=== PATIENT | male | born 1985 | race Caucasian/White ===

== ENCOUNTER 2016-12-02 10:12 | Emergency (ER) | payer OTHER ==
[~2016-12-02] VITALS: Ht 175.3 cm; Wt 106.4 kg
[~2016-12-02 10:12] MED LIST: AMOXICILLIN500 MG PO; AUGMENTIN875 MG PO; BACTRIM,SEPT1 TABLET PO; CLEOCIN300 MG PO; Cipro PO; DECADRON4 MG PO; DOXYCYCLINE HY100 M3 PO; ENDOCET 5-3251 EACH PO; Folvite PO; HABITROL,NICODE21 MG TD; HYDROCODON-ACE1 EAC7 PO; KLONOPIN1 MG PO; LEVAQUIN500 MG PO; LIDOCAINE HCL20 ML MM; MOTRIN600 MG PO; MOTRIN800 MG PO; NAPROSYN500 MG PO; NAPROXEN500 MG PO; NOHOMEMEDS; PERCOCET 5/31 TABLET PO; PREDNISONE20 MG PO; ROBITUSSIN AC,T10 ML PO; TESSALON PERLE100 MG PO; THIAMINE,VITAM100 MG PO; ULTRAM50 MG PO
[2016-12-02 10:45] LABS: ADD MIUA? YES; BILIRUBIN NEGATIVE; BLOOD MODERATE; GLUCOSE (STRIP) NEGATIVE; KETONES NEGATIVE; LEUKOCYTES NEGATIVE; NITRITE NEGATIVE; PROTEIN (STRIP) NEGATIVE; SPECIFIC GRAVITY 1.011 (1.000-1.030); UROBILINOGEN 0.2 MG/DL (0.2-1.0)
[2016-12-02 10:46] LABS: COLOR PALE STRAW ((YELLOW))
[2016-12-02 10:56] LABS: AMPHETAMINE NEGATIVE (500 ng/mL); BARBITURATES NEGATIVE (200 ng/mL); BENZODIAZEPINES NEGATIVE (150 ng/mL); COCAINE NEGATIVE (150 ng/mL); INTERNAL CONTROLS VALID? YES; METHADONE NEGATIVE (200 ng/mL); METHAMPHETAMINE NEGATIVE (500 ng/mL); OPIATES (MORPHINE) NEGATIVE (100 ng/mL); OXYCODONE NEGATIVE (100 ng/mL); PHENCYCLIDINE NEGATIVE (25 ng/mL); PROPOXYPHENE NEGATIVE (300 ng/mL); THC CANNABINOIDS NEGATIVE (50 ng/mL); TRICYCLIC ANTIDEPRESSANTS NEGATIVE (300 ng/mL)
[2016-12-02 11:02] LABS: BASOPHIL COUNT 0.1 K/uL (0-0.1); EOSINOPHIL COUNT 0.1 K/uL (0-0.3); HEMATOCRIT 39.7 % (38.0-50.0); IMMATURE GRANULOCYTE (%) 0.1 % (0.0-0.7); IMMATURE GRANULOCYTE COUNT 0.1 K/uL; LYMPHOCYTE COUNT 2.9 K/uL (1.0-2.8); MCH 31.1 PG (29.0-34.0); MCV 88.8 FL (86-99); MEAN PLAT.VOLUME 9.4 uM^3 (9.0-12.4); MONOCYTE (%) 6.2 % (3-12); MONOCYTE COUNT 0.5 K/uL (0-0.8); NEUTROPHIL (%) 54.2 % (45-76); NEUTROPHIL COUNT 4.2 K/uL (1.8-6.4); PLATELET COUNT 262 K/uL (156-360); RBC DIS.WIDTH-CV 14.9 % (11.8-14.6); RBC DIS.WIDTH-SD 47.5 % (39-53); RED BLOOD COUNT 4.47 M/uL (4.00-5.50); WHITE BLOOD COUNT 7.7 K/uL (4.1-10.2)
[2016-12-02 11:10] LABS: CHLORIDE 109 mEq/L (99-109); POTASSIUM 3.7 mEq/L (3.7-5.4); SODIUM 147 mEq/L (136-147)
[2016-12-02 11:13] LABS: GLUCOSE 87 mg/dL (70-99)
[2016-12-02 11:14] LABS: ANION GAP 13 MEQ/L (2-14); TOTAL BILIRUBIN 0.5 mg/dL (0.0-1.0)
[2016-12-02 11:15] LABS: SERUM ETHYL ALCOHOL 354 mg/dL
[2016-12-02 11:16] LABS: GFR ESTIMATE (CALCULATED) > 59 mL/min/
[2016-12-02 11:17] LABS: ALKALINE PHOSPHATASE 53 IU/L (3-129)
[2016-12-02 11:18] LABS: UREA NITROGEN (BUN) 10 mg/dL (9-23)
[2016-12-02 11:20] LABS: SALICYLATE < 5.0 MG/DL (15-30)
[2016-12-02 11:21] LABS: CREATINE KINASE 592 IU/L (1-294); LIPASE 28 U/L (1.0-51.0); TOTAL CK 592 IU/L (1-294)
[2016-12-02 11:26] LABS: TROP-I INTERPRETATION NEGATIVE; TROPONIN-I < 0.01 ng/mL (0.0-0.30)
[2016-12-02 11:27] LABS: AMORPHOUS URATES CRYSTALS FEW; BACTERIA NONE SEEN /HPF; CASTS NONE SEEN /LPF; CRYSTALS PRESENT; EPITHELIAL CELLS RARE /HPF; MUCUS NONE SEEN /LPF; RED BLOOD CELLS RARE /HPF (0-5); UCUL ADDED? NO; WHITE BLOOD CELLS RARE /HPF (0-5)
[2016-12-02 11:27] LABS: CK-MB 5.3 ng/mL (0.0-4.9)
[2016-12-02] MEDS ORDERED: KEPPRA500 MG PO (17:36)
[2016-12-02 17:52] VITALS: BP 107/70
== END 2016-12-02 17:57 | disposition left against medical advice (07) ==
LOC: EME 10:12
PROVIDERS: Emergency Medicine
DX: G43.909 Migraine, unspecified, not intractable, without status migrainosus (principal); F10.129 Alcohol abuse with intoxication, unspecified; Z91.14 Patient's other noncompliance with medication regimen; Y90.8 Blood alcohol level of 240 mg/100 ml or more; F17.200 Nicotine dependence, unspecified, uncomplicated
CPT/HCPCS: 70450; 71010; 80053; 81003; 82550; 82553; 83605; 83690; 84484; 85025; 93005; 99281; 99285; G0480; J1630; J1953; J2250; J7030; J7050